=== PATIENT | female | born 1955 | race American Indian/Alaskan Native ===

== ENCOUNTER 2019-05-02 12:14 | Inpatient (IN) | payer MEDICAID, MEDICARE ==
--- NOTE | 2019-05-02 12:26 | Event Note ---
ED Screening Note Date of service: 05/02/19 Time: 12:21 ED Screening Note: This is a 64 y.o. F. that presents to the ER with AMS. Patient caregiver states patient is not the same since waking this morning. She reports patient is partially responding to her and moving slower than usual. Last known well time was 2030 yesterday. Caregiver states patient is sleeping more than usual. This initial assessment/diagnostic orders/clinical plan/treatment(s) is/are subject to change based on patients health status, clinical progression and re- assessment by fellow clinical providers in the ED. Further treatment and workup at subsequent clinical providers discretion. Patient/guardian urged not to elope from the ED as their condition may be serious if not clinically assessed and managed. Initial orders include: Labs CT of head CXR Given analgesics
[2019-05-02] MEDS ORDERED: IBUPROFEN 600 MG TAB PO ONE ×2 (12:29→12:31)
[2019-05-02 13:50] LABS: Hemoglobin 11.2 gm/dl (10.1-14.3); Mean Corpuscular HGB Conc 34 % (30-34); Mean Corpuscular Volume 88 fl (79-97); Platelet Count 170 K/mm3 (140-440); Red Blood Count 3.76 M/mm3 (3.65-5.03); Red Cell Distribution Width 14.9 % (13.2-15.2)
--- NOTE | 2019-05-02 14:20 | XRay Report ---
CHEST 2 VIEWS INDICATION: cough. COMPARISON: None. FINDINGS: Support devices: None. Heart: Within normal limits. Pulmonary vasculature: Normal. Lungs/pleura: Bibasal streaky lung opacities with silhouetting of the diaphragm and opacification of the right costophrenic angle on the frontal view. Posterior costophrenic angles are opacified on the lateral view. No pneumothorax. Additional findings: None. IMPRESSION: 1. Small pleural effusions and bibasal streaky atelectasis versus chronic pleural scarring. 2. No pneumonia. Signer Name: Abhijit Pierre MD Signed: 05/02/2019 2:15 PM Workstation Name: [id number]
[2019-05-02 14:43] LABS: Bilirubin,Urine NEG (Negative); Blood,Urine SM (Negative); Color,Urine Yellow (Yellow); Protein,Urine <15 mg/dL mg/dL (Negative); WBC,Urine < 1.0 /HPF (0.0-6.0)
[2019-05-02 14:49] LABS: Albumin 3.8 g/dL (3.9-5)
--- NOTE | 2019-05-02 15:51 | Cat Scan Report ---
CT HEAD WITHOUT CONTRAST INDICATION / CLINICAL INFORMATION: Altered mental status. TECHNIQUE: Axial imaging performed from the skull apex through the skull base without the use of cont rast. Sagittal and coronal reformatted images. All CT scans at this location are performed using CT dose reduction for ALARA by means of automated exposure control. COMPARISON: None available. FINDINGS: CEREBRAL PARENCHYMA: No significant abnormality. No acute territorial infarct. HEMORRHAGE: None. EXTRA-AXIAL SPACES: Normal in size and morphology for the patient's age. VENTRICULAR SYSTEM: Normal in size and morphology for the patient's age. MIDLINE SHIFT OR HERNIATION: None. CEREBELLUM / BRAINSTEM: No significant abnormality. CALVARIUM: No significant abnormality. ORBITS: Normal as visualized. PARANASAL SINUSES / MASTOID AIR CELLS: Normal as visualized. SOFT TISSUES of HEAD: No significant abnormality. ADDITIONAL FINDINGS: None. IMPRESSION: Cranial CT scan within normal limits. Signer Name: Abdulaziz Castro Jr, MD Signed: 05/02/2019 3:46 PM Workstation Name: [id number]
[2019-05-02 15:52] LABS: Band Neutrophils # (Manual) 0.1 K/mm3; Basophils % (Manual) 0 % (0.0-1.8); Total Cells Counted 100
[2019-05-02 15:53] LABS: Large Platelets 1+; Platelet Estimate Consistent w Auto; RBC Morphology Normal
[2019-05-02] MEDS ORDERED: SODIUM CHLORIDE 0.9% 1000 ML 1,000 ML IV ONE (21:46)
[2019-05-02] MEDS ORDERED: SODIUM CHLORIDE 0.9% 1000 ML 2,500 ML IV ONE (22:33)
--- NOTE | 2019-05-02 22:33 | Emergency Department Report ---
ED General Adult HPI - General Chief complaint: Altered Mental Status Stated complaint: NOT RESPONDING Time Seen by Provider: 05/02/19 12:21 Source: patient, family Mode of arrival: Ambulatory Limitations: No Limitations - History of Present Illness Initial comments: The patient presents to the emergency department from a local shelter by her caregivers for change in behavior. States for the last couple of days patient has not been acting like herself. Patient states she's had a fever and has not felt well. Follows reported that the patient was altered patient is able to answer all questions appropriately. Patient denies chest pain, shortness breath, or abdominal pain. Patient does complain of fatigue, muscle weakness, and fever. -: days(s) Severity scale (0 -10): 0 Consistency: constant Improves with: none Worsens with: none Associated Symptoms: denies other symptoms Treatments Prior to Arrival: none - Related Data Home Medications Medication Instructions Recorded Confirmed Last Taken Divalproex Dr [Depakote Dr] 500 mg PO BID 05/02/19 05/02/19 Unknown Trazodone HCl 50 mg PO QHS 05/02/19 05/02/19 Unknown risperiDONE [RisperDAL] 2 mg PO BID 05/02/19 05/02/19 Unknown Allergies Allergy/AdvReac Type Severity Reaction Status Date / Time No Known Allergies Allergy Verified 05/02/19 12:32 ED Review of Systems ROS: Stated complaint: NOT RESPONDING Other details as noted in HPI Comment: All other systems reviewed and negative Constitutional: denies: chills, fever Eyes: denies: eye pain, eye discharge, vision change ENT: denies: ear pain, throat pain Respiratory: denies: cough, shortness of breath, wheezing Cardiovascular: denies: chest pain, palpitations Endocrine: no symptoms reported Gastrointestinal: denies: abdominal pain, nausea, diarrhea Genitourinary: denies: urgency, dysuria, discharge Musculoskeletal: denies: back pain, joint swelling, arthralgia Skin: denies: rash, lesions Neurological: denies: headache, weakness, paresthesias Psychiatric: denies: anxiety, depression Hematological/Lymphatic: denies: easy bleeding, easy bruising ED Past Medical Hx - Past Medical History Previous Medical History?: No - Surgical History Past Surgical History?: No - Social History Smoking Status: Current Some Day Smoker Substance Use Type: None - Medications Home Medications: Home Medications Medication Instructions Recorded Confirmed Last Taken Type Divalproex Dr [Depakote Dr] 500 mg PO BID 05/02/19 05/02/19 Unknown History Trazodone HCl 50 mg PO QHS 05/02/19 05/02/19 Unknown History risperiDONE [RisperDAL] 2 mg PO BID 05/02/19 05/02/19 Unknown History ED Physical Exam - General Limitations: No Limitations General appearance: alert, in no apparent distress - Head Head exam: Present: atraumatic, normocephalic - Eye Eye exam: Present: normal appearance, PERRL, EOMI - ENT ENT exam: Present: mucous membranes dry - Neck Neck exam: Present: normal inspection - Respiratory Respiratory exam: Present: normal lung sounds bilaterally, rales. Absent: respiratory distress, wheezes - Cardiovascular Cardiovascular Exam: Present: normal rhythm, tachycardia. Absent: systolic murmur, diastolic murmur, rubs, gallop - GI/Abdominal GI/Abdominal exam: Present: soft, normal bowel sounds. Absent: distended, tenderness - Extremities Exam Extremities exam: Present: normal inspection - Back Exam Back exam: Present: normal inspection - Neurological Exam Neurological exam: Present: alert, oriented X3, CN II-XII intact. Absent: motor sensory deficit - Psychiatric Psychiatric exam: Present: normal affect, normal mood - Skin Skin exam: Present: warm, dry, intact, normal color. Absent: rash ED Course Vital Signs 05/02/19 05/02/19 05/02/19 12:18 21:44 22:35 Temperature 102.3 F H 100.9 F H Pulse Rate 124 H 129 H 115 H Respiratory 18 20 23 Rate Blood Pressure 114/66 Blood Pressure 130/59 [Left] O2 Sat by Pulse 93 95 84 Oximetry ED Medical Decision Making - Lab Data Result diagrams: 05/02/19 13:18 05/02/19 13:18 Lab Results 05/02/19 05/02/19 05/02/19 Range/Units 13:18 13:18 13:18 WBC 6.6 (4.5-11.0) K/mm3 RBC 3.76 (3.65-5.03) M/mm3 Hgb 11.2 (10.1-14.3) gm/dl Hct 33.0 (30.3-42.9) % MCV 88 (79-97) fl MCH 30 (28-32) pg MCHC 34 (30-34) % RDW 14.9 (13.2-15.2) % Plt Count 170 (140-440) K/mm3 [place] % (Auto) Director Of Income Tax Add Manual Diff Complete Total Counted 100 Seg Neuts % (Manual) 77.0 H (40.0-70.0) % Band Neutrophils % 2.0 % Lymphocytes % (Manual) 1.0 L (13.4-35.0) % Reactive Lymphs % (Man) 0 % Monocytes % (Manual) 19.0 H (0.0-7.3) % Eosinophils % (Manual) 1.0 (0.0-4.3) % Basophils % (Manual) 0 (0.0-1.8) % Metamyelocytes % 0 % Myelocytes % 0 % Promyelocytes % 0 % Blast Cells % 0 % Nucleated RBC % Not Reportable Seg Neutrophils # Man 5.1 (1.8-7.7) K/mm3 Band Neutrophils # 0.1 K/mm3 Lymphocytes # (Manual) 0.1 L (1.2-5.4) K/mm3 Abs React Lymphs (Man) 0.0 K/mm3 Monocytes # (Manual) 1.3 H (0.0-0.8) K/mm3 Eosinophils # (Manual) 0.1 (0.0-0.4) K/mm3 Basophils # (Manual) 0.0 (0.0-0.1) K/mm3 Metamyelocytes # 0.0 K/mm3 Myelocytes # 0.0 K/mm3 Promyelocytes # 0.0 K/mm3 Blast Cells # 0.0 K/mm3 WBC Morphology Not Reportable Hypersegmented Neuts Not Reportable Hyposegmented Neuts Not Reportable Hypogranular Neuts Not Reportable Smudge Cells Not Reportable Toxic Granulation Not Reportable Toxic Vacuolation Not Reportable Dohle Bodies Not Reportable Pelger-Huet Anomaly Not Reportable Michele Rods Not Reportable Platelet Estimate Consistent w auto Clumped Platelets Not Reportable Plt Clumps, EDTA Not Reportable Large Platelets 1+ Giant Platelets Not Reportable Platelet Satelliting Not Reportable Plt Morphology Comment Not Reportable RBC Morphology Normal Dimorphic RBCs Not Reportable Polychromasia Not Reportable Hypochromasia Not Reportable Poikilocytosis Not Reportable Anisocytosis Not Reportable Microcytosis Not Reportable Macrocytosis Not Reportable Spherocytes Not Reportable Pappenheimer Bodies Not Reportable Sickle Cells Not Reportable Target Cells Not Reportable Tear Drop Cells Not Reportable Ovalocytes Not Reportable Helmet Cells Not Reportable [place]owrie Bodies Not Reportable Brogue Rings Not Reportable Cl Cells Not Reportable Bite Cells Not Reportable Crenated Cell Not Reportable Elliptocytes Not Reportable Acanthocytes (Spur) Not Reportable Rouleaux Not Reportable Hemoglobin C Crystals Not Reportable Schistocytes Not Reportable Malaria parasites Not Reportable Cecilio Bodies Not Reportable Hem Pathologist Commnt No Sodium 136 L (137-145) mmol/L Potassium 4.2 (3.6-5.0) mmol/L Chloride 98.6 (98-107) mmol/L Carbon Dioxide 21 L (22-30) mmol/L Anion Gap 21 mmol/L BUN 14 (7-17) mg/dL Creatinine 1.2 (0.7-1.2) mg/dL Estimated GFR 45 ml/min BUN/Creatinine Ratio 12 % Glucose 95 (65-100) mg/dL Lactic Acid (0.7-2.0) mmol/L Calcium 9.0 (8.4-10.2) mg/dL Total Bilirubin 0.20 (0.1-1.2) mg/dL AST 29 (5-40) units/L ALT 27 (7-56) units/L Alkaline Phosphatase 53 (35-129) units/L Total Protein 7.5 (6.3-8.2) g/dL Albumin 3.8 L (3.9-5) g/dL Albumin/Globulin Ratio 1.0 % TSH 0.586 (0.270-4.200) mlU/mL Urine Color (Yellow) Urine Turbidity (Clear) Urine pH (5.0-7.0) Ur Specific [place] (1.003-1.030) Urine Protein (Negative) mg/dL Urine Glucose (UA) (Negative) mg/dL Urine Ketones (Negative) mg/dL Urine Blood (Negative) Urine Nitrite (Negative) Urine Bilirubin (Negative) Urine Urobilinogen (<2.0) mg/dL Ur Leukocyte Esterase (Negative) Urine WBC (Auto) (0.0-6.0) /HPF Urine RBC (Auto) (0.0-6.0) /HPF U Epithel Cells (Auto) (0-13.0) /HPF 05/02/19 05/02/19 Range/Units 14:20 21:50 WBC (4.5-11.0) K/mm3 RBC (3.65-5.03) M/mm3 Hgb (10.1-14.3) gm/dl Hct (30.3-42.9) % MCV (79-97) fl MCH (28-32) pg MCHC (30-34) % RDW (13.2-15.2) % Plt Count (140-440) K/mm3 [place] % (Auto) Add Manual Diff Total Counted Seg Neuts % (Manual) (40.0-70.0) % Band Neutrophils % % Lymphocytes % (Manual) (13.4-35.0) % Reactive Lymphs % (Man) % Monocytes % (Manual) (0.0-7.3) % Eosinophils % (Manual) (0.0-4.3) % Basophils % (Manual) (0.0-1.8) % Metamyelocytes % % Myelocytes % % Promyelocytes % % Blast Cells % % Nucleated RBC % Seg Neutrophils # Man (1.8-7.7) K/mm3 Band Neutrophils # K/mm3 Lymphocytes # (Manual) (1.2-5.4) K/mm3 Abs React Lymphs (Man) K/mm3 Monocytes # (Manual) (0.0-0.8) K/mm3 Eosinophils # (Manual) (0.0-0.4) K/mm3 Basophils # (Manual) (0.0-0.1) K/mm3 Metamyelocytes # K/mm3 Myelocytes # K/mm3 Promyelocytes # K/mm3 Blast Cells # K/mm3 WBC Morphology Hypersegmented Neuts Hyposegmented Neuts Hypogranular Neuts Smudge Cells Toxic Granulation Toxic Vacuolation Dohle Bodies Pelger-Huet Anomaly Michele Rods Platelet Estimate Clumped Platelets Plt Clumps, EDTA Large Platelets Giant Platelets Platelet Satelliting Plt Morphology Comment RBC Morphology Dimorphic RBCs Polychromasia Hypochromasia Poikilocytosis Anisocytosis Microcytosis Macrocytosis Spherocytes Pappenheimer Bodies Sickle Cells Target Cells Tear Drop Cells Ovalocytes Helmet Cells Sarabia-Gowrie Bodies Brogue Rings Cl Cells Bite Cells Crenated Cell Elliptocytes Acanthocytes (Spur) Rouleaux Hemoglobin C Crystals Schistocytes Malaria parasites Cecilio Bodies Hem Pathologist Commnt Sodium (137-145) mmol/L Potassium (3.6-5.0) mmol/L Chloride (98-107) mmol/L Carbon Dioxide (22-30) mmol/L Anion Gap mmol/L BUN (7-17) mg/dL Creatinine (0.7-1.2) mg/dL Estimated GFR ml/min BUN/Creatinine Ratio % Glucose (65-100) mg/dL Lactic Acid 2.80 H* (0.7-2.0) mmol/L Calcium (8.4-10.2) mg/dL Total Bilirubin (0.1-1.2) mg/dL AST (5-40) units/L ALT (7-56) units/L Alkaline Phosphatase (35-129) units/L Total Protein (6.3-8.2) g/dL Albumin (3.9-5) g/dL Albumin/Globulin Ratio % TSH (0.270-4.200) mlU/mL Urine Color Yellow (Yellow) Urine Turbidity Clear (Clear) Urine pH 5.0 (5.0-7.0) Ur Specific [place] 1.013 (1.003-1.030) Urine Protein <15 mg/dl (Negative) mg/dL Urine Glucose (UA) Neg (Negative) mg/dL Urine Ketones Neg (Negative) mg/dL Urine Blood Sm (Negative) Urine Nitrite Neg (Negative) Urine Bilirubin Neg (Negative) Urine Urobilinogen 2.0 (<2.0) mg/dL Ur Leukocyte Esterase Neg (Negative) Urine WBC (Auto) < 1.0 (0.0-6.0) /HPF Urine RBC (Auto) 4.0 (0.0-6.0) /HPF U Epithel Cells (Auto) 1.0 (0-13.0) /HPF - EKG Data -: EKG Interpreted by Nh EKG shows normal: sinus rhythm Rate: tachycardia - Radiology Data Radiology results: report reviewed - Medical Decision Making Review the laboratory values shows a left shift The patient having a maintain tachycardia with a fever further evaluation for dissection was done especially with a chest x-ray that was read as atelectasis with no pneumonia CT of the chest is done in the radiology recesses a small amount atelectasis but reviewing her CAT scan shows concern for bilateral pneumonia Critical Care Time: Yes Critical care time in (mins) excluding proc time.: 45 Critical care attestation.: If time is entered above; I have spent that time in minutes in the direct care of this critically ill patient, excluding procedure time. ED Disposition Clinical Impression: Sepsis, Pneumonia Disposition: OP ADMIT IP TO THIS HOSP Is pt being admited?: Yes Does the pt Need Aspirin: No Condition: Fair Instructions: Bacterial Pneumonia (ED) Referrals: HENRY GILLESPIE MD [Primary Care Provider] - 3-5 Days
[2019-05-02] MEDS ORDERED: VANCOMYCIN 1,500 MG in SODIUM CHLORIDE 0.9% 500 ML 500 ML IV ONE (22:34)
--- NOTE | 2019-05-02 22:58 | Cat Scan Report ---
CT CHEST WITHOUT IV CONTRAST INDICATION: pneumonia. COMPARISON: None available. TECHNIQUE: All CT scans at this location are performed using CT dose reduction for ALARA by means of automated e xposure control. Axial CT images were obtained through the chest after IV contrast. FINDINGS: Upper Abdomen: No acute abnormality. Skeletal System: No acute abnormality. Chest: Great Vessels: No acute abnormality. Heart: Normal. Mediastinum & Urszula: No significant abnormality. Lungs: There is compressive atelectasis in the dependent lung bases. Pleura: There are very small bilateral pleural effusions. No pneumothorax. Additional Findings: None. IMPRESSION: 1. Very small bilateral effusions with associated compressive atelectasis in the dependent lung bases . Signer Name: Michael Kirby MD Signed: 05/02/2019 10:54 PM Workstation Name: [id number]
[2019-05-02] MEDS ORDERED: VANCOMYCIN PHARMACY TO DOSE IV SCH (23:00)
[2019-05-02] MEDS ORDERED: CEFEPIME/NS 2 GM/100 ML 2 GM/100 ML BAG IV SCH ×2 (23:00)
[2019-05-03] MEDS ORDERED: MAGNESIUM HYDROXIDE (MOM) ORAL LIQD UDC PO PRN (00:17)
[2019-05-03] MEDS ORDERED: MORPHINE 2 MG/1 ML INJ IV PRN (00:17)
[2019-05-03] MEDS ORDERED: ONDANSETRON 4 MG/2 ML INJ IV PRN (00:17)
[2019-05-03] MEDS ORDERED: SODIUM CHLORIDE 0.9% 1000 ML 1,000 ML IV SCH ×2 (00:30→10:30)
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
[2019-05-03] MEDS ORDERED: CEFEPIME/NS 1 GM/100 ML 0 GM/0 ML BAG IV ONE (03:32)
[2019-05-03] MEDS ORDERED: CEFEPIME/NS 2 GM/100 ML 0 GM/0 ML BAG IV ONE (03:49)
[2019-05-03] MEDS: CEFEPIME/NS 2 GM/100 ML 2 GM/100 ML BAG IV SCH ×2 (04:07→16:06)
[2019-05-03] MEDS ORDERED: SODIUM CHLORIDE 0.9% 1000 ML 2,000 ML ONE (05:51)
[2019-05-03] MEDS ORDERED: CEFEPIME/NS 2 GM/100 ML 2 GM/100 ML BAG IV SCH (06:00)
[2019-05-03] MEDS ORDERED: ACETAMINOPHEN 325 MG TAB ONE (08:24)
[2019-05-03] MEDS: ACETAMINOPHEN 325 MG TAB PO PRN (08:28)
[2019-05-03] MEDS ORDERED: NON-FORMULARY EACH (Risperidone [Risperdal] 2 MG) PO SCH (10:00)
[2019-05-03] MEDS: DIVALPROEX DR 500 MG TAB PO SCH ×2 (11:31→22:05)
[2019-05-03] MEDS: risperiDONE 1 MG TAB PO SCH ×2 (11:32→22:05)
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
--- NOTE | 2019-05-03 16:40 | Progress Note ---
Assessment and Plan Assessment and plan: 64-year-old female resident of a personal half-way brought into the emergency room today because of fever and not being her usual self. Caregivers indicate that patient has not been doing very well lately and has been having fever. There has been no history of chest pain, no nausea vomiting, no diarrhea, no hematuria or dysuria. Upon arrival in the emergency room she was found to have fever, tachycardic and work-up reveals slightly elevated lactic acid. Radiological investigation reveals pneumonia. (1) Pneumonia Current Visit: Yes Status: Acute Plan to address problem: Patient placed on empiric IV antibiotics. ID consulted, blood cultures pending no growth at this time. Concern is possible underlining influenza (2) Sepsis Current Visit: Yes Status: Acute Plan to address problem: Present on admission. Possibly secondary to the pneumonia. Patient has been placed on IV fluid and antibiotics. Will monitor chemistry including lactic acid levels. (3) acute metabolic encephalopathy secondary to sepsis in a patient with underlying dementia. Expect improved back to baseline (4) influenza A Started on Tamiflu (5) DVT prophylaxis Current Visit: Yes Status: Acute Plan to address problem: Patient placed on subcutaneous heparin. Anticipate discharge in a.m. if patient continues to improve back to the personal half-way. History Interval history: Patient seen and examined resting comfortably at the time of my evaluation. Nursing staff informs me that the patient has intermittent change in mental stat us patient has underlying dementia possible some underlying delirium she is a intermediate resident admitted with sepsis secondary to suspected pneumonia. Unable to get any information from except that 'I feel better". Hospitalist Physical - Physical exam Narrative exam: VITAL SIGNS: Reviewed. GENERAL: The patient appears normally developed, lethargic appearing vital signs as documented. HEAD: No signs of head trauma. EYES: Pupils are equal. Extraocular motions intact. EARS: Hearing grossly intact. MOUTH: Oropharynx is normal. NECK: No adenopathy, no JVD. CHEST: Chest with diminished breath sounds bilaterally. No wheezes, rales, or rhonchi. CARDIAC: Regular rate and rhythm. S1 and S2, without murmurs, gallops, or rubs. VASCULAR: No Edema. Peripheral pulses normal and equal in all extremities. ABDOMEN: Soft, non tender and non distended. No rebound or guarding, and no masses palpated. Bowel Sounds normal. MUSCULOSKELETAL: Good range of motion of all major joints. Extremities without clubbing, cyanosis or edema. NEUROLOGIC EXAM: Alert and oriented x 3 No focal sensory or strength deficits. Speech normal however delayed slightly. Follows commands. PSYCHIATRIC: Mood normal. SKIN: detail exam as documented in skin assessment - Constitutional Vitals: Temp Pulse Resp BP Pulse Ox 98.5 F 95 H 18 119/55 92 05/03/19 13:18 05/03/19 13:18 05/03/19 13:18 05/03/19 13:18 05/03/19 13:18 General appearance: Present: no acute distress, well-nourished Results - Labs CBC & Chem 7: 05/02/19 13:18 05/02/19 13:18 Labs: Laboratory Last Values WBC 6.6 K/mm3 (4.5-11.0) 05/02/19 13:18 RBC 3.76 M/mm3 (3.65-5.03) 05/02/19 13:18 Hgb 11.2 gm/dl (10.1-14.3) 05/02/19 13:18 Hct 33.0 % (30.3-42.9) 05/02/19 13:18 MCV 88 fl (79-97) 05/02/19 13:18 MCH 30 pg (28-32) 05/02/19 13:18 MCHC 34 % (30-34) 05/02/19 13:18 RDW 14.9 % (13.2-15.2) 05/02/19 13:18 Plt Count 170 K/mm3 (140-440) 05/02/19 13:18 [place] % (Auto) Ivory Carver 05/02/19 13:18 Add Manual Diff Complete 05/02/19 13:18 Total Counted 100 05/02/19 13:18 Seg Neuts % (Manual) 77.0 % (40.0-70.0) H 05/02/19 13:18 Band Neutrophils % 2.0 % 05/02/19 13:18 Lymphocytes % (Manual) 1.0 % (13.4-35.0) L 05/02/19 13:18 Reactive Lymphs % (Man) 0 % 05/02/19 13:18 Monocytes % (Manual) 19.0 % (0.0-7.3) H 05/02/19 13:18 Eosinophils % (Manual) 1.0 % (0.0-4.3) 05/02/19 13:18 Basophils % (Manual) 0 % (0.0-1.8) 05/02/19 13:18 Metamyelocytes % 0 % 05/02/19 13:18 Myelocytes % 0 % 05/02/19 13:18 Promyelocytes % 0 % 05/02/19 13:18 Blast Cells % 0 % 05/02/19 13:18 Nucleated RBC % Not Reportable 05/02/19 13:18 Seg Neutrophils # Man 5.1 K/mm3 (1.8-7.7) 05/02/19 13:18 Band Neutrophils # 0.1 K/mm3 05/02/19 13:18 Lymphocytes # (Manual) 0.1 K/mm3 (1.2-5.4) L 05/02/19 13:18 Abs React Lymphs (Man) 0.0 K/mm3 05/02/19 13:18 Monocytes # (Manual) 1.3 K/mm3 (0.0-0.8) H 05/02/19 13:18 Eosinophils # (Manual) 0.1 K/mm3 (0.0-0.4) 05/02/19 13:18 Basophils # (Manual) 0.0 K/mm3 (0.0-0.1) 05/02/19 13:18 Metamyelocytes # 0.0 K/mm3 05/02/19 13:18 Myelocytes # 0.0 K/mm3 05/02/19 13:18 Promyelocytes # 0.0 K/mm3 05/02/19 13:18 Blast Cells # 0.0 K/mm3 05/02/19 13:18 WBC Morphology Not Reportable 05/02/19 13:18 Hypersegmented Neuts Not Reportable 05/02/19 13:18 Hyposegmented Neuts Not Reportable 05/02/19 13:18 Hypogranular Neuts Not Reportable 05/02/19 13:18 Smudge Cells Not Reportable 05/02/19 13:18 Toxic Granulation Not Reportable 05/02/19 13:18 Toxic Vacuolation Not Reportable 05/02/19 13:18 Dohle Bodies Not Reportable 05/02/19 13:18 Pelger-Huet Anomaly Not Reportable 05/02/19 13:18 Michele Rods Not Reportable 05/02/19 13:18 Platelet Estimate Consistent w auto 05/02/19 13:18 Clumped Platelets Not Reportable 05/02/19 13:18 Plt Clumps, EDTA Not Reportable 05/02/19 13:18 Large Platelets 1+ 05/02/19 13:18 Giant Platelets Not Reportable 05/02/19 13:18 Platelet Satelliting Not Reportable 05/02/19 13:18 Plt Morphology Comment Not Reportable 05/02/19 13:18 RBC Morphology Normal 05/02/19 13:18 Dimorphic RBCs Not Reportable 05/02/19 13:18 Polychromasia Not Reportable 05/02/19 13:18 Hypochromasia Not Reportable 05/02/19 13:18 Poikilocytosis Not Reportable 05/02/19 13:18 Anisocytosis Not Reportable 05/02/19 13:18 Microcytosis Not Reportable 05/02/19 13:18 Macrocytosis Not Reportable 05/02/19 13:18 Spherocytes Not Reportable 05/02/19 13:18 Pappenheimer Bodies Not Reportable 05/02/19 13:18 Sickle Cells Not Reportable 05/02/19 13:18 Target Cells Not Reportable 05/02/19 13:18 Tear Drop Cells Not Reportable 05/02/19 13:18 Ovalocytes Not Reportable 05/02/19 13:18 Helmet Cells Not Reportable 05/02/19 13:18 [place]-Grannis Bodies Not Reportable 05/02/19 13:18 [place] Rings Not Reportable 05/02/19 13:18 Cl Cells Not Reportable 05/02/19 13:18 Bite Cells Not Reportable 05/02/19 13:18 Crenated Cell Not Reportable 05/02/19 13:18 Elliptocytes Not Reportable 05/02/19 13:18 Acanthocytes (Spur) Not Reportable 05/02/19 13:18 Rouleaux Not Reportable 05/02/19 13:18 Hemoglobin C Crystals Not Reportable 05/02/19 13:18 Schistocytes Not Reportable 05/02/19 13:18 Malaria parasites Not Reportable 05/02/19 13:18 Cecilio Bodies Not Reportable 05/02/19 13:18 Hem Pathologist Commnt No 05/02/19 13:18 Sodium 136 mmol/L (137-145) L 05/02/19 13:18 Potassium 4.2 mmol/L (3.6-5.0) 05/02/19 13:18 Chloride 98.6 mmol/L (98-107) 05/02/19 13:18 Carbon Dioxide 21 mmol/L (22-30) L 05/02/19 13:18 Anion Gap 21 mmol/L 05/02/19 13:18 BUN 14 mg/dL (7-17) 05/02/19 13:18 Creatinine 1.2 mg/dL (0.7-1.2) 05/02/19 13:18 Estimated GFR 45 ml/min 05/02/19 13:18 BUN/Creatinine Ratio 12 % 05/02/19 13:18 Glucose 95 mg/dL (65-100) 05/02/19 13:18 Lactic Acid 1.40 mmol/L (0.7-2.0) 05/03/19 01:44 Calcium 9.0 mg/dL (8.4-10.2) 05/02/19 13:18 Total Bilirubin 0.20 mg/dL (0.1-1.2) 05/02/19 13:18 AST 29 units/L (5-40) 05/02/19 13:18 ALT 27 units/L (7-56) 05/02/19 13:18 Alkaline Phosphatase 53 units/L (35-129) 05/02/19 13:18 Total Protein 7.5 g/dL (6.3-8.2) 05/02/19 13:18 Albumin 3.8 g/dL (3.9-5) L 05/02/19 13:18 Albumin/Globulin Ratio 1.0 % 05/02/19 13:18 TSH 0.586 mlU/mL (0.270-4.200) 05/02/19 13:18 Urine Color Yellow (Yellow) 05/02/19 14:20 Urine Turbidity Clear (Clear) 05/02/19 14:20 Urine pH 5.0 (5.0-7.0) 05/02/19 14:20 Ur Specific [place] 1.013 (1.003-1.030) 05/02/19 14:20 Urine Protein <15 mg/dl mg/dL (Negative) 01/08/20 14:20 Urine Glucose (UA) Neg mg/dL (Negative) 05/02/19 14:20 Urine Ketones Neg mg/dL (Negative) 05/02/19 14:20 Urine Blood Sm (Negative) 05/02/19 14:20 Urine Nitrite Neg (Negative) 05/02/19 14:20 Urine Bilirubin Neg (Negative) 05/02/19 14:20 Urine Urobilinogen 2.0 mg/dL (<2.0) 05/02/19 14:20 Ur Leukocyte Esterase Neg (Negative) 05/02/19 14:20 Urine WBC (Auto) < 1.0 /HPF (0.0-6.0) 05/02/19 14:20 Urine RBC (Auto) 4.0 /HPF (0.0-6.0) 05/02/19 14:20 U Epithel Cells (Auto) 1.0 /HPF (0-13.0) 05/02/19 14:20 Influenza A (Rapid) Positive (Negative) A 05/03/19 Unknown Influenza B (Rapid) Negative (Negative) 05/03/19 Unknown Active Medications - Current Medications Current Medications: Generic Name Dose Route Start Last Admin Trade Name Freq PRN Reason Stop Dose Admin Acetaminophen 650 mg 05/03/19 00:17 05/03/19 08:28 Tylenol PO 650 mg Q4H PRN Administration Pain MILD(1-3)/Fever >100.5/CALDERON Azithromycin 500 mg 05/03/19 15:00 Zithromax PO 05/08/19 14:59 QDAY TRUNG Divalproex Sodium 500 mg 05/03/19 10:00 05/03/19 11:31 Depakocorinne Buckley PO 500 mg BID TRUNG Administration Heparin Sodium (Porcine) 5,000 unit 05/03/19 14:00 Heparin SUB-Q Q8HR TRUNG Sodium Chloride 1,000 mls @ 125 mls/hr 05/03/19 00:30 Nacl 0.9% 1000 Ml IV DIRECT TRUNG Sodium Chloride 1,000 mls @ 0 mls/hr 05/03/19 10:30 Nacl 0.9% 1000 Ml IV 05/04/19 10:31 ONCE TRUNG As Directed Ceftriaxone Sodium 1 gm in 50 mls @ 100 mls/hr 05/03/19 15:00 Rocephin/Ns 1 Gm/50 Ml IV Q24HR TRUNG Protocol Magnesium Hydroxide 30 ml 05/03/19 00:17 Milk Of Magnesia PO Q4H PRN Constipation Morphine Sulfate 2 mg 05/03/19 00:17 Morphine IV Q4H PRN Pain, Moderate (4-6) Ondansetron HCl 4 mg 05/03/19 00:17 Zofran IV Q8H PRN Nausea And Vomiting Oseltamivir Phosphate 75 mg 05/03/19 15:00 Tamiflu PO 05/07/19 22:01 BID TRUNG Risperidone 2 mg 05/03/19 10:00 05/03/19 11:32 Risperdal PO 2 mg BID TRUNG Administration Sodium Chloride 10 ml 05/03/19 10:00 05/03/19 11:41 Sodium Chloride Flush Syringe 10 Ml IV 10 ml BID TRUNG Administration Sodium Chloride 10 ml 05/03/19 00:17 Sodium Chloride Flush Syringe 10 Ml IV PRN PRN LINE FLUSH Trazodone HCl 50 mg 05/03/19 22:00 Desyrel PO QHS TRUNG
[2019-05-03] MEDS: cefTRIAXone/NS 1 GM/50 ML 1 GM/50 ML BAG IV SCH (17:14)
[2019-05-03] MEDS: HEPARIN 5,000 UNIT/1 ML VIAL SUB-Q SCH ×2 (17:19→22:06)
[2019-05-03] MEDS: OSELTAMIVIR 75 MG CAP PO SCH ×2 (17:47→22:05)
[2019-05-03] MEDS: AZITHROMYCIN 250 MG TAB PO SCH (17:48)
[2019-05-03] MEDS ORDERED: traZODone 50 MG TAB PO SCH (22:00)
[2019-05-03] MEDS ORDERED: VANCOMYCIN/NS 1 GM/250 ML 1 GM/250 ML BAG IV SCH (22:00)
[2019-05-04] MEDS: ACETAMINOPHEN 325 MG TAB PO PRN (03:37)
[2019-05-04 06:20] LABS: Basophils % (Auto) 0.5 % (0.0-1.8); Hematocrit 28.8 % (30.3-42.9); Hemoglobin 9.8 gm/dl (10.1-14.3); Lymphocytes # (Auto) 1.2 K/mm3 (1.2-5.4); Lymphocytes % (Auto) 12.7 % (13.4-35.0); Mean Corpuscular HGB Conc 34 % (30-34); Mean Corpuscular Volume 88 fl (79-97); Monocytes # (Auto) 1.5 K/mm3 (0.0-0.8); Monocytes % (Auto) 15.4 % (0.0-7.3); Platelet Count 142 K/mm3 (140-440); Red Blood Count 3.29 M/mm3 (3.65-5.03); Red Cell Distribution Width 14.7 % (13.2-15.2)
[2019-05-04] MEDS: HEPARIN 5,000 UNIT/1 ML VIAL SUB-Q SCH ×2 (06:30→14:39)
[2019-05-04 06:31] LABS: INR 1.01 (0.87-1.13)
[2019-05-04 06:32] LABS: Partial Thromboplastin Time 46.3 Sec. (24.2-36.6)
[2019-05-04 06:45] LABS: BUN/Creatinine Ratio 10; Blood Urea Nitrogen 10 mg/dL (7-17); Calcium 8.2 mg/dL (8.4-10.2); Hemolysis Index 3
[2019-05-04] MEDS: AZITHROMYCIN 250 MG TAB PO SCH (09:38)
[2019-05-04] MEDS: risperiDONE 1 MG TAB PO SCH (09:38)
[2019-05-04] MEDS: DIVALPROEX DR 500 MG TAB PO SCH (09:38)
[2019-05-04] MEDS: cefTRIAXone/NS 1 GM/50 ML 1 GM/50 ML BAG IV SCH (09:38)
[2019-05-04] MEDS: OSELTAMIVIR 75 MG CAP PO SCH (09:38)
--- NOTE | 2019-05-04 11:20 | Discharge Summary ---
Providers - Providers Date of Admission: 05/02/19 23:16 Attending physician: KIMANI PITTMAN MD 05/03/19 08:32 Consult to Physician [CONS] Routine Comment: called office/ lolita Consulting Provider: JANAE EASTON Physician Instructions: Reason For Exam: sepsis with pna 05/03/19 08:48 Physical Therapy Evaluation and Treat [CONS] Routine Comment: Reason For Exam: ATAXIA Primary care physician: HENRY GILLESPIE Hospitalization Reason for admission: pnueomia Condition: Stable Hospital course: 64-year-old female resident of a personal skilled nursing brought into the emergency room today because of fever and not being her usual self. Caregivers indicate that patient has not been doing very well lately and has been having fever. There has been no history of chest pain, no nausea vomiting, no diarrhea, no hematuria or dysuria. Upon arrival in the emergency room she was found to have fever, tachycardic and work-up reveals slightly elevated lactic acid. Radiological investigation reveals pneumonia. * She is clinically doing well at this time * She was treated for sepsis initially thought to be secondary to Pneumonia but xray was clears and serology returned with Influenza A * she is stable for discharge with Tamiflu * Acute metabolic encephalopathy secondary to sepsis in a patient with underlying dementia. influenza A Sepsis Dementia Disposition: TO HOME OR SELFCARE Time spent for discharge: 35 mins Core Measure Documentation - Palliative Care Palliative Care/ Comfort Measures: Not Applicable - Core Measures Any of the following diagnoses?: none Exam - Physical Exam Narrative exam: VITAL SIGNS: Reviewed. GENERAL: The patient appears normally developed, vital signs as documented. HEAD: No signs of head trauma. EYES: Pupils are equal. Extraocular motions intact. EARS: Hearing grossly intact. MOUTH: Oropharynx is normal. NECK: No adenopathy, no JVD. CHEST: Chest with diminished breath sounds bilaterally. No wheezes, rales, or rhonchi. CARDIAC: Regular rate and rhythm. S1 and S2, without murmurs, gallops, or rubs. VASCULAR: No Edema. Peripheral pulses normal and equal in all extremities. ABDOMEN: Soft, non tender and non distended. No rebound or guarding, and no masses palpated. Bowel Sounds normal. MUSCULOSKELETAL: Good range of motion of all major joints. Extremities without clubbing, cyanosis or edema. NEUROLOGIC EXAM: Alert and oriented x 3 No focal sensory or strength deficits. Speech normal. Follows commands. PSYCHIATRIC: Mood normal. SKIN: detail exam as documented in skin assessment - Constitutional Vitals: Temp Pulse Resp BP Pulse Ox 98.3 F 101 H 18 146/61 95 05/04/19 03:38 05/04/19 04:04 05/04/19 04:37 05/04/19 03:38 05/03/19 22:00 Plan Activity: advance as tolerated, fall precautions Diet: low fat Special Instructions: record daily weights, record daily BP diary Follow up with: HENRY GILLESPIE MD [Primary Care Provider] - 3-5 Days Prescriptions: Oseltamivir [Tamiflu] 75 mg PO BID #8 capsule
--- NOTE | 2019-05-04 12:09 | Progress Note ---
Assessment and Plan Cultures: 05/02/2019 blood culture: no growth thus far Influenza A A/P: 64-year-old female, history of psychiatric illness, [facility] was brought into the emergency room yesterday with fever and altered mental status: #Fever, altered mental status, possible pneumonia along with influenza A #Acute encephalopathy: No meningeal signs on examination. No leukocytosis. ?self limiting. At the time of my eval, patient was up, ambulating in the room. No concern for meningitis. Recs: Ok for discharge from ID standpoint on PO Tamiflu to complete 5 days Would also recommend additional PO Ceftin 500 mg BID x 5 days due to elevated procalcitonin to cover pneumonia d/w Dr. Mcintosh. Nando Garcia MD, FACP [facility] C: [phone] O: [phone] F: [phone] Subjective Date of service: 05/04/19 Interval history: No fever. Feels well. Denies any complaints. Objective - Exam Narrative Exam: Physical Exam: Constitutional: Awake, alert, no distress Head, Ears, Nose: Normocephalic, atraumatic. External ears, nose normal Eyes: Conjunctivae/corneas clear. No icterus. No ptosis. Neck: Supple, no meningeal signs Oral: no thrush Cardiovascular: S1, S2 normal. Respiratory: Good air entry, clear to auscultation bilaterally GI: Soft, non-tender; bowel sounds normal. No peritoneal signs Musculoskeletal: No pedal edema, no cyanosis. Skin: No rash or abscess Hem/Lymphatic: No palpable cervical or supraclavicular nodes. No lymphangitis Psych: Mood ok. Affect flat Neurological: awake, alert, oriented, grossly non focal - Constitutional Vitals: Vital Signs Temp Pulse Resp BP Pulse Ox 98.3 F 101 H 18 146/61 95 05/04/19 03:38 05/04/19 04:04 05/04/19 04:37 05/04/19 03:38 05/03/19 22:00 Temperature -Last 24 Hours Temperature 98.3 F Temperature 98.2 F Temperature 98.5 F - Labs CBC & Chem 7: 05/04/19 05:55 05/04/19 05:55 Labs: Abnormal lab results 05/03/19 05/04/19 05/04/19 Range/Units Unknown 05:55 05:55 RBC 3.29 L (3.65-5.03) M/mm3 Hgb 9.8 L (10.1-14.3) gm/dl Hct 28.8 L (30.3-42.9) % Lymph % (Auto) 12.7 L (13.4-35.0) % [place] % (Auto) 15.4 H (0.0-7.3) % [place] # 1.5 H (0.0-0.8) K/mm3 Seg Neutrophils % 71.4 H (40.0-70.0) % APTT 46.3 H (24.2-36.6) Sec. Chloride (98-107) mmol/L Calcium (8.4-10.2) mg/dL Influenza A (Rapid) Positive A (Negative) 05/04/19 Range/Units 05:55 RBC (3.65-5.03) M/mm3 Hgb (10.1-14.3) gm/dl Hct (30.3-42.9) % Lymph % (Auto) (13.4-35.0) % [place] % (Auto) (0.0-7.3) % [place] # (0.0-0.8) K/mm3 Seg Neutrophils % (40.0-70.0) % APTT (24.2-36.6) Sec. Chloride 107.1 H (98-107) mmol/L Calcium 8.2 L (8.4-10.2) mg/dL Influenza A (Rapid) (Negative)
[2019-05-04 15:09] VITALS: BP 123/55
== END 2019-05-04 17:45 | disposition home or self-care (01) | DRG 871 ==
LOC: ED 12:14 → 2B-ACE 23:16
PROVIDERS: ADMIT Internal Medicine Geriatric Medicine; ATTEND Internal Medicine
DX: A41.9 Sepsis, unspecified organism (principal); G93.41 Metabolic encephalopathy; J10.00 Influenza due to other identified influenza virus with unspecified type of pneumonia; F17.210 Nicotine dependence, cigarettes, uncomplicated; F03.90 Unspecified dementia, unspecified severity, without behavioral disturbance, psychotic disturbance, mood disturbance, and anxiety
CPT/HCPCS: 36415; 70450; 70460; 71046; 71250; 80048; 80053; 81001; 82140; 84145; 84443; 85007; 85025; 85610; 85730; 87040; 87400; 93005; 93010; G0378; J0692; J0696; J1644; J3370; J7030; J7040